=== PATIENT | male | born 2000 | race African-American/Black ===

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

== ENCOUNTER 2024-06-11 08:49 | Emergency (ER) | payer OTHER, BC ==
[2024-06-11 09:04] VITALS: BP 135/82; PULSE 60; RESP 20; TEMP 97.7; BMI 31.6
[2024-06-11] MEDS ORDERED: IBUPROFEN 600 MG TABLET (FP) PO ONE (09:26)
[2024-06-11] MEDS: IBUPROFEN 600 MG TABLET (FP) PO ONE (09:28)
== END 2024-06-11 09:58 | disposition home or self-care (01) ==
LOC: JER 08:49
DX: S09.93XA Unspecified injury of face, initial encounter (principal); M54.6 Pain in thoracic spine; V49.40XA Driver injured in collision with unspecified motor vehicles in traffic accident, initial encounter; Y92.410 Unspecified street and highway as the place of occurrence of the external cause
CPT/HCPCS: 99283-25